=== PATIENT | female | born 1960 | race Asian ===

== ENCOUNTER 2017-06-09 15:10 | Inpatient (IN) | payer OTHER ==
[~2017-06-09] VITALS: Ht 152.4 cm; Wt 39.9 kg
[2017-06-09 04:00] VITALS: BP 177/98
--- NOTE | 2017-06-09 15:30 | NUR ---
PATIENT ARRIVED TO UNIT AND PLACED IN ROOM 110. PATIENT ARRIVED ON A GURNEY VIA AMBULANCE WITH TWO drapery cutter machine. MOTHER AT BEDSIDE.
[2017-06-09] MEDS ORDERED: NIFE60TA69 PO (16:04)
[2017-06-09] MEDS ORDERED: INSU100V7 SQ (16:04)
[2017-06-09] MEDS ORDERED: FAMO40TA7 PO (16:04)
[2017-06-09] MEDS ORDERED: OMEP40CA37 PO (16:04)
[2017-06-09] MEDS ORDERED: TRAZ-144 PO (16:04)
[2017-06-09] MEDS ORDERED: METO-357 PO (16:04)
[2017-06-09] MEDS ORDERED: [UNRECOGNIZED DRUG - CODE] PO (16:04)
[2017-06-09] MEDS ORDERED: SIMV40TA5 PO (16:04)
[2017-06-09 16:05] VITALS: BP 177/98
[2017-06-09] MEDS ORDERED: MAGNESIUM HYDROXIDE 30 ML UDC PO PRN (17:00)
[2017-06-09] MEDS ORDERED: cetrizine 10 MG TABLET PO PRN (17:00)
[2017-06-09] MEDS ORDERED: Z GUARD REMEDY 2 OZ OINT TP PRN (17:00)
[2017-06-09] MEDS ORDERED: HYDROCODONE/APAP 5/325MG 1 EACH TABLET PO PRN (17:00)
[2017-06-09] MEDS ORDERED: MAG HYDROX/AL HYDROX/SIMETH 30 ML UDC PO PRN (17:00)
[2017-06-09] MEDS ORDERED: ZOLPIDEM TARTRATE 5 MG TABLET PO PRN (17:00)
[2017-06-09] MEDS ORDERED: ONDANSETRON HCL/PF 4 MG/2 ML VIAL IVP PRN (17:00)
[2017-06-09] MEDS ORDERED: ENOXAPARIN SODIUM 40 MG/0.4 ML DISP.SYRIN SQ SCH ×2 (17:00→21:00)
[2017-06-09] MEDS ORDERED: ACETAMINOPHEN 325 MG TABLET PO PRN (17:00)
[2017-06-09] MEDS: BLOOD SUGAR DIAGNOSTIC 1 EACH STRIP VI SCH ×2 (17:22→21:20)
[2017-06-09] MEDS: METOPROLOL SUCCINATE 50 MG TAB.SR.24H PO SCH (17:27)
[2017-06-09] MEDS: NIFEdipine XL 60 MG TAB PO SCH (17:27)
[2017-06-09] MEDS ORDERED: CLONIDINE HCL 0.1 MG TABLET PO PRN (17:30)
[2017-06-09 17:52] LABS: BASOPHILS % (AUTO) 0.5 % (0.0-2.0); EOSINOPHILS % (AUTO) 0.6 % (0.0-6.0); HEMATOCRIT 30 % (33-45); HEMOGLOBIN 10.3 g/dL (11.5-14.8); LYMPHOCYTES # (AUTO) 2.3 /CMM (0.8-4.8); LYMPHOCYTES % (AUTO) 50.8 % (20.0-44.0); MEAN CORPUSCULAR HEMOGLOBIN 31 PG (26.0-33.0); MEAN CORPUSCULAR HGB CONC 34 g/dl (31.0-36.0); MEAN CORPUSCULAR VOLUME 89 fL (82-100); MONOCYTES # (AUTO) 0.4 /CMM (0.1-1.30); MONOCYTES % (AUTO) 8.4 % (2.0-12.0); NEUTROPHILS # (AUTO) 1.8 /CMM (1.8-8.9); NEUTROPHILS % (AUTO) 39.7 % (43.0-81.0); PLATELET COUNT (AUTO) 255 /CMM (150-450); RDW COEFFICIENT OF VARIATION 12.5 (11.5-15.0); RED BLOOD CELL COUNT(AUTO) 3.39 MIL/uL (4.0-5.2); WHITE BLOOD COUNT (AUTO) 4.5 K/uL (4.3-11.0)
[2017-06-09] MEDS ORDERED: SIMVASTATIN 40 MG TABLET PO SCH ×2 (18:00→22:00)
[2017-06-09 18:15] LABS: TROPONIN I 0.48 ng/mL (0.00-0.056)
[2017-06-09 18:23] LABS: CALCIUM, SERUM 8.4 mg/dL (8.5-10.1)
[2017-06-09 18:28] LABS: ALBUMIN 2.3 g/dL (3.4-5.0); BILIRUBIN,TOTAL 0.3 mg/dL (0.2-1.0); MAGNESIUM 2.2 mg/dL (1.8-2.4); PHOSPHORUS 5.1 mg/dL (2.5-4.9); TOTAL PROTEIN, SERUM 6.3 g/dL (6.4-8.2)
--- NOTE | 2017-06-09 19:02 | NUR ---
RN CLOSING NOTES: PATIENT IS IN BED, AWAKE. ALERT AND ORIENTED TO SELF ONLY. MOTHER AT BEDSIDE. LUXEMBOURGER SPEAKING. NO SIGNS AND SYMPTOMS OF DISTRESS. BREATHING IS EVEN BILATERALLY. IV ACCESS REMAINS PATENT AND FLUSHING WELL, ON HL. VS REMAINS STABLE. ALL NURSING CARE ANTICIPATED AND ATTENDED FOR. NO FURTHER COMPLAINTS. SAFETY PRECAUTIONS FOR FALL REMAINS ENGAGED, CALL LIGHT IN REACH, WILL ENDORSE TO NIGHT RN FOR ANSLEY.
--- NOTE | 2017-06-09 19:20 | NUR ---
FIELD HOCKEY COACH OPENING NOTES PT AWAKE AND RESTING IN BED. FAMILY AT BEDSIDE. NO COMPLAINTS OF SOB, PAIN, OR DISTRESS AT THIS TIME. PT HAS IMPAIRED MENTAL STATUS. PER DAY SHIFT NURSE FAMILY NOT GREAT HISTORIAN. PT TELE MONITORED. SAFETY PRECAUTIONS IN PLACE. BED IN LOWEST LOCKED POSITION, X2 SIDE RAILS UP. WILL CONTINUE TO MONITOR.
[2017-06-09] MEDS: ENOXAPARIN SODIUM 40 MG/0.4 ML DISP.SYRIN SQ SCH (19:48)
[2017-06-09 20:00] VITALS: BP 182/97
[2017-06-09] MEDS: hydrALAZINE HCL IV 20 MG VIAL IV PRN (20:36)
--- NOTE | 2017-06-09 20:36 | NUR ---
RN NOTES PT BP 182/97. WILL ADMINISTER PRN APRESOLINE 10MG. WILL CONTINUE TO MONITOR.
[2017-06-09] MEDS: FAMOTIDINE (20 MG) 20 MG TABLET PO SCH (21:19)
[2017-06-09] MEDS: TRAZODONE 50 MG TABLET PO SCH (21:19)
--- NOTE | 2017-06-09 21:19 | NUR ---
RN NOTES PT MOTHER ASKED FOR A SLEEPING PILL FOR PT. PT TAKES REGULARLY. WILL ADMINISTER PRN AMBIEN 5MG AND CONTINUE TO MONITOR.
[2017-06-09] MEDS: *INSULIN REGULAR(HUMULIN R)HUM 100 UNIT/ML VIAL SQ PRN (21:36)
[2017-06-09] MEDS ORDERED: INSULIN GLARGINE, 100 UNIT/ML CARTRIDGE SQ SCH (22:00)
[2017-06-10] VITALS: BP 110/62
[2017-06-10 04:00] VITALS: BP 127/77
--- NOTE | 2017-06-10 06:56 | NUR ---
MANAGER [employer] CLOSING NOTES PT SLEEPING IN BED, EASILY AROUSED. FAMILY AT BEDSIDE. NO COMPLAINTS OF SOB, PAIN, OR DISTRESS OVERNIGHT. PT HAS IMPAIRED MENTAL STATUS. PT TELE MONITORED SINUS RHYTHM RATE OF 83. SAFETY PRECAUTIONS IN PLACE. BED IN LOWEST LOCKED POSITION, X2 SIDE RAILS UP. ALL PT NEEDS MET. WILL ENDORSE TO DAY SHIFT NURSE FOR CONTINUITY OF CARE.
--- NOTE | 2017-06-10 07:10 | NUR ---
RN INITIAL NOTE PATIENT RECEIVED IN BED RESTING COMFORTABLY. NO S/S OF PAIN OR DISCOMFORT. NO S/S OF RESPIRATORY DISTRESS OR SOB. SATING WELL ON 2L NASAL CANULA. DA SILVA CATHETER DRAINING TO GRAVITY. SKIN IS WARM AND DRY TO TOUCH. IV SITE FLUSHED, PATENT. SAFETY PRECAUTIONS IMPLEMENTED: BED IN LOCKED, LOW POSITION WITH TWO SIDE RAILS UP. CALL LIGHT WITHIN EASY REACH. WILL MONITOR CLOSELY.
[2017-06-10 07:15] LABS: BASOPHILS % (AUTO) 0.3 % (0.0-2.0); HEMATOCRIT 32 % (33-45); HEMOGLOBIN 10.8 g/dL (11.5-14.8); LYMPHOCYTES # (AUTO) 1.1 /CMM (0.8-4.8); LYMPHOCYTES % (AUTO) 22.5 % (20.0-44.0); MEAN CORPUSCULAR HEMOGLOBIN 30 PG (26.0-33.0); MEAN CORPUSCULAR HGB CONC 34 g/dl (31.0-36.0); MEAN CORPUSCULAR VOLUME 90 fL (82-100); MONOCYTES # (AUTO) 0.1 /CMM (0.1-1.30); MONOCYTES % (AUTO) 2.3 % (2.0-12.0); NEUTROPHILS # (AUTO) 3.8 /CMM (1.8-8.9); NEUTROPHILS % (AUTO) 74.9 % (43.0-81.0); PLATELET COUNT (AUTO) 258 /CMM (150-450); RDW COEFFICIENT OF VARIATION 12.3 (11.5-15.0); RED BLOOD CELL COUNT(AUTO) 3.58 MIL/uL (4.0-5.2)
[2017-06-10 07:24] LABS: CALCIUM, SERUM 8.4 mg/dL (8.5-10.1); CREATININE 0.8 mg/dL (0.6-1.3); MAGNESIUM 1.9 mg/dL (1.8-2.4); PHOSPHORUS 4.9 mg/dL (2.5-4.9); POTASSIUM 3.3 mmol/L (3.5-5.1)
--- NOTE | 2017-06-10 07:45 | NUR ---
RN NOTE LAB CALLED CRITICAL BS-36. RECHECKED WITH FINGER STICK; RESULT WAS 31. GAVE GLUCOSE INJECTION
[2017-06-10] MEDS: DEXTROSE 50%-WATER 50 ML DISP.SYRIN IV PRN ×3 (07:47→23:33)
[2017-06-10 08:00] VITALS: BP 180/97
[2017-06-10 08:01] LABS: CHOLESTEROL 194 mg/dL (<200); HDL CHOLESTEROL 103 mg/dL (40-60); LDL 84 mg/dL (0-99); TRIGLYCERIDES 21 mg/dL (30-150)
[2017-06-10] MEDS: NIFEdipine XL 60 MG TAB PO SCH ×2 (08:09→17:13)
[2017-06-10] MEDS: CLOPIDOGREL BISULFATE 75 MG TABLET PO SCH (08:10)
[2017-06-10] MEDS: METOPROLOL SUCCINATE 50 MG TAB.SR.24H PO SCH (08:10)
[2017-06-10] MEDS: BENAZEPRIL HCL 10 MG TABLET PO SCH (08:11)
[2017-06-10] MEDS: ENOXAPARIN SODIUM 40 MG/0.4 ML DISP.SYRIN SQ SCH ×2 (08:14→21:23)
[2017-06-10] MEDS: PANTOPRAZOLE 40 MG TABLET.DR PO SCH (08:15)
[2017-06-10] MEDS: BLOOD SUGAR DIAGNOSTIC 1 EACH STRIP VI SCH ×4 (08:15→21:23)
[2017-06-10] MEDS: ASPIRIN EC 81 MG TABLET.DR PO SCH (08:15)
[2017-06-10] MEDS ORDERED: IV NS 0.9% 250 ML IV ONE (11:48)
[2017-06-10] MEDS ORDERED: IOHEXOL-300 100 ML VIAL IV ONE (11:48)
[2017-06-10 12:00] VITALS: BP 168/77
[2017-06-10] MEDS ORDERED: POTASSIUM CHLORIDE 20 MEQ TAB.PRT.SR PO SCH (14:00)
[2017-06-10 16:00] VITALS: BP 155/77
[2017-06-10] MEDS ORDERED: IV D5/ 0.9% NACL 1,000 ML IV ONE (17:30)
[2017-06-10 20:00] VITALS: BP 145/85
--- NOTE | 2017-06-10 20:00 | NUR ---
RN NOTES RECEIVED PATIENT IN BED, ALERT AND RESPONSIVE NOTED WITH MENTAL RETARDATION. NO DISTRESS NOTED. BREATHING EVEN AND UNLABORED. MOTHER AT BEDSIDE. NO COMPLAINT OF PAIN OR DISCOMFORT. VITAL SIGNS WNL. KEPT CLEAN AND DRY. WILL CONTINUE TO MONITOR.
[2017-06-10] MEDS: TRAZODONE 50 MG TABLET PO SCH (21:20)
[2017-06-10] MEDS: FAMOTIDINE (20 MG) 20 MG TABLET PO SCH (21:20)
[2017-06-10] MEDS: INSULIN GLARGINE, 100 UNIT/ML CARTRIDGE SQ SCH (21:21)
[2017-06-10] MEDS: ATORVASTATIN 40 MG TABLET PO SCH (21:21)
[2017-06-10] MEDS: INSULIN REGULAR, HUMAN 100 UNIT/ML 3 ML VIAL SQ PRN (21:28)
--- NOTE | 2017-06-10 23:55 | NUR ---
RN NOTES NOTED PATIENT TO BE COLD CLAMMY WITH CONFUSION, CHECKED BLOOD SUGAR. GLUCOMETER READING LOW. ADMINISTERED DEXTROSE INJ 50%-WATER. VITAL SIGNS TAKEN WNL. CHECKED BLOOD SUGAR LEVEL AFTER ABOUT 30 MINUTES 132. PATIENT KEPT CLEAN AND DRY.
[2017-06-11] VITALS: BP 146/65
[2017-06-11] MEDS: *INSULIN REGULAR(HUMULIN R)HUM 100 UNIT/ML VIAL SQ PRN (00:30)
[2017-06-11 06:00] VITALS: BP 126/67
[2017-06-11 07:17] LABS: CALCIUM, SERUM 8.4 mg/dL (8.5-10.1); CREATININE 0.8 mg/dL (0.6-1.3); POTASSIUM 3.2 mmol/L (3.5-5.1)
[2017-06-11] MEDS: BLOOD SUGAR DIAGNOSTIC 1 EACH STRIP VI SCH ×4 (07:24→21:15)
--- NOTE | 2017-06-11 07:29 | NUR ---
AGRICULTURE TECHNICIAN NOTES RECEIVED PT ON BED SLEEPING. CONFUSED. IV ACCESS ON RFA #20 RUNNING WELL. HEAD OF BED ELEVATED. SIDE RAILS UP. CALL LIGHT WITHIN REACH. WILL CONTINUE TO MONITOR PT CLOSELY.
[2017-06-11 08:00] VITALS: BP_SYST 143; BP_SYST 145; BP_DIAS 67; BP_DIAS 94
[2017-06-11] MEDS: ENOXAPARIN SODIUM 40 MG/0.4 ML DISP.SYRIN SQ SCH ×2 (08:05→21:22)
[2017-06-11] MEDS: PANTOPRAZOLE 40 MG TABLET.DR PO SCH (08:06)
[2017-06-11] MEDS: METOPROLOL SUCCINATE 50 MG TAB.SR.24H PO SCH (08:06)
[2017-06-11] MEDS: NIFEdipine XL 60 MG TAB PO SCH ×2 (08:06→16:35)
[2017-06-11] MEDS: BENAZEPRIL HCL 10 MG TABLET PO SCH (08:06)
[2017-06-11] MEDS: CLOPIDOGREL BISULFATE 75 MG TABLET PO SCH (08:07)
[2017-06-11] MEDS: ASPIRIN EC 81 MG TABLET.DR PO SCH (08:07)
[2017-06-11] MEDS: POTASSIUM CHLORIDE 20 MEQ TAB.PRT.SR PO SCH ×2 (11:55→13:00)
[2017-06-11 12:00] VITALS: BP_SYST 156; BP_DIAS 64; BP_DIAS 69
[2017-06-11] MEDS: METOPROLOL SUCCINATE 25 MG TAB.SR.24H PO SCH (13:22)
[2017-06-11 16:00] VITALS: BP 184/86
[2017-06-11] MEDS: hydrALAZINE HCL IV 20 MG VIAL IV PRN (16:34)
--- NOTE | 2017-06-11 16:44 | NUR ---
SLIP TENDER NOTES [employer] RE[employer]UE ACCOUNTING MANAGER NOTIFIED REGARDING PT HIGH BLOOD PRESSURE 184/74. GIVEN HYDRALAZINE 10MG. WILL MONITOR BP CLOSELY
--- NOTE | 2017-06-11 17:07 | NUR ---
CEO & BOARD DIRECTOR NOTES BP CHECKED 154/74. HR IS 90.
--- NOTE | 2017-06-11 18:57 | NUR ---
DIE OPERATOR NOTES NO ACUTE CHANGES NOTED DURING THE SHIFT. PROVIDED COMFORT AND SAFETY. DUE MEDS GIVEN. WILL ENDORSE TO THE PM NURSE FOR ANSLEY.
--- NOTE | 2017-06-11 19:30 | NUR ---
WATER RESTORATION TECHNICIAN INITIAL NOTE PATIENT RECEIVED LYING IN BED, AOX1, MOTHER AT BEDSIDE, NO PAIN NOTED. TELE SR 88, NO CARDIAC OR RESPIRATORY DISTRESS NOTED. LFA IV FLUSHING WELL. NO S/SX OF HYPO/HYPERGLYCEMIA NOTED. SAFETY MAINTAINED, BED LOCKED IN LOCKED, LOW POSITION, CALL LIGHT WITHIN REACH, WILL CONTINUE TO MONITOR FOR ANY CHANGES.
[2017-06-11 20:00] VITALS: BP_SYST 107; BP_SYST 152; BP_DIAS 57; BP_DIAS 72
[2017-06-11] MEDS: FAMOTIDINE (20 MG) 20 MG TABLET PO SCH (21:14)
[2017-06-11] MEDS: TRAZODONE 50 MG TABLET PO SCH (21:15)
[2017-06-11] MEDS: ATORVASTATIN 40 MG TABLET PO SCH (21:15)
[2017-06-11] MEDS: INSULIN GLARGINE, 100 UNIT/ML CARTRIDGE SQ SCH (21:22)
[2017-06-12] VITALS (7 sets, daily range): BP systolic 124–147; BP diastolic 65–86
--- NOTE | 2017-06-12 06:29 | NUR ---
SLITTER SCORER CLOSING NOTE NO ACUTE CHANGES DURING SHIFT, PATIENT RESTING COMFORTABLY IN BED, GLUCOSE ELEVATED IN PM, 223, NO INSULIN COVERAGE PER MD ORDERS, NO S/SX OF HYPERGLYCEMIA. SAFETY MAINTAINED AT ALL TIMES, WILL ENDORSE TO RN FOR ANSLEY.
[2017-06-12 06:35] LABS: CALCIUM, SERUM 8.9 mg/dL (8.5-10.1); POTASSIUM 3.8 mmol/L (3.5-5.1)
[2017-06-12 06:53] LABS: FERRITIN 119 ng/mL (8-388)
[2017-06-12 07:27] LABS: IRON, SERUM 102 ug/dl (50-175); TOTAL IRON BINDING CAPACITY 222 ug/dl (250-450)
[2017-06-12] MEDS: PANTOPRAZOLE 40 MG TABLET.DR PO SCH (08:06)
[2017-06-12] MEDS: CLOPIDOGREL BISULFATE 75 MG TABLET PO SCH (08:06)
[2017-06-12] MEDS: ASPIRIN EC 81 MG TABLET.DR PO SCH (08:06)
[2017-06-12] MEDS: METOPROLOL SUCCINATE 25 MG TAB.SR.24H PO SCH (08:07)
[2017-06-12] MEDS: BENAZEPRIL HCL 10 MG TABLET PO SCH (08:07)
[2017-06-12] MEDS: BLOOD SUGAR DIAGNOSTIC 1 EACH STRIP VI SCH ×4 (08:07→22:33)
[2017-06-12] MEDS: NIFEdipine XL 60 MG TAB PO SCH ×2 (08:07→16:14)
[2017-06-12] MEDS: INSULIN REGULAR, HUMAN 100 UNIT/ML 3 ML VIAL SQ PRN (17:09)
--- NOTE | 2017-06-12 18:27 | NUR ---
CITIZEN PARTICIPATION SPECIALIST NOTE CONSENT SIGNED FOR CT ANGIOGRAM BY MOTHER @ BEDSIDE. PT STABLE NO C/O PAIN. V/S WNL . WILL CONTINUE TO MONITOR.
--- NOTE | 2017-06-12 19:30 | NUR ---
RN INITIAL NOTE RECEIVED PT IN NO ACUTE DISTRESS IN BED. PT IS A/O X 1 BUT HAS FAMILY AT BEDSIDE. PT IS MONGOLIAN SPEAKING. PT IS ON TELE WITH SR ON THE MONITOR. PT IS NOT C/O ANY SOB, DIFFICULTY BREATHING OR PAIN AT THIS TIME. PT IS ABLE TO AMBULATE TO RESTROOM. PT HAS L WRIST 22G THAT IS CLEAN DRY INTACT AND PATENT. BED IN LOW LOCK POSITION WITH RIALS UP X 2. CALL LIGHT WITHIN REACH AND ALL SAFETY MEASURES ENSURED AND CARRIED OUT. WILL CONTINUE TO MONITOR PT.
[2017-06-12] MEDS: INSULIN GLARGINE, 100 UNIT/ML CARTRIDGE SQ SCH (22:00)
[2017-06-12] MEDS: ATORVASTATIN 40 MG TABLET PO SCH (22:32)
[2017-06-12] MEDS: TRAZODONE 50 MG TABLET PO SCH (22:32)
[2017-06-12] MEDS: FAMOTIDINE (20 MG) 20 MG TABLET PO SCH (22:32)
[2017-06-13] VITALS: BP 132/68
[2017-06-13 04:00] VITALS: BP 137/62
[2017-06-13] MEDS: PANTOPRAZOLE 40 MG TABLET.DR PO SCH (07:30)
--- NOTE | 2017-06-13 07:30 | NUR ---
IN BED RESTING COMFORTABLY. MOM AT BEDSIDE, INFORMED OF NPO STATUS. ON RA. NO C/O PAIN. WILL CONT TO MONITOR.
[2017-06-13] MEDS: BLOOD SUGAR DIAGNOSTIC 1 EACH STRIP VI SCH ×4 (07:45→21:14)
[2017-06-13 08:00] VITALS: BP 150/77
[2017-06-13 08:06] LABS: CALCIUM, SERUM 8.9 mg/dL (8.5-10.1); CREATININE 0.9 mg/dL (0.6-1.3); POTASSIUM 3.9 mmol/L (3.5-5.1)
[2017-06-13] MEDS: BENAZEPRIL HCL 10 MG TABLET PO SCH ×2 (10:28→17:05)
[2017-06-13] MEDS: ASPIRIN EC 81 MG TABLET.DR PO SCH (10:29)
[2017-06-13] MEDS: CLOPIDOGREL BISULFATE 75 MG TABLET PO SCH (10:29)
[2017-06-13] MEDS: METOPROLOL SUCCINATE 25 MG TAB.SR.24H PO SCH (10:29)
[2017-06-13] MEDS: NIFEdipine XL 60 MG TAB PO SCH ×2 (10:30→17:04)
[2017-06-13] MEDS: *INSULIN REGULAR(HUMULIN R)HUM 100 UNIT/ML VIAL SQ PRN ×2 (11:44→21:22)
[2017-06-13 12:00] VITALS: BP 167/70
--- NOTE | 2017-06-13 12:00 | NUR ---
RESTING COMFORTABLY IN BED. NO DISTRESS NOTED. WILL CONTINUE TO MONITOR.
--- NOTE | 2017-06-13 12:30 | NUR ---
BLOOD SUGAR 196. MOM REFUSED TO HAVE INSULIN GIVEN BECAUSE PT HAS NOT HAD FOOD DUE TO PLANNED PROCEDURE. BP ELEVATED BUT BP MEDS PREVIOUSLY GIVEN. PT'S MOM AGITATED BECAUSE PROCEDURE IS LATER THAN EXPECTED. EDUCATED MOM. WILL CONTINUE TO MONITOR.
--- NOTE | 2017-06-13 14:17 | NUR ---
PROCEDURE CANCELLED ORDERED, FED PT. WILL CONTINUE TO MONITOR.
[2017-06-13 16:00] VITALS: BP 147/69
[2017-06-13] MEDS: INSULIN REGULAR, HUMAN 100 UNIT/ML 3 ML VIAL SQ PRN (17:58)
--- NOTE | 2017-06-13 18:23 | NUR ---
PT'S BLOOD SUGARS MONITORED AND WAS 398, REPEATED 393. MOM HESITANT TO HAVE THE 15 UNIT INSULIN BUT EDUCATED MOM REGARDING BLOOD SUGAR LEVELS. MOM IS SCARED THAT PT'S BLOOD SUGAR WILL GO DOWN AND THAT PT WILL HAVE A "HEART ATTACK AGAIN." INFORMED MOM THAT PT IS BEING MONITORED IN HOSPITAL AND IF SUGAR LEVEL HAPPENS TO BE LOW, MEDICATION TO INCREASE BLOOD SUGAR WILL BE GIVEN ORDERED. MOM AGREED FOR THE 15 UNIT DOSE TO BE GIVEN. WILL CONTINUE TO MONITOR.
[2017-06-13 20:00] VITALS: BP_SYST 141; BP_SYST 147; BP_DIAS 60
[2017-06-13] MEDS: TRAZODONE 50 MG TABLET PO SCH (21:13)
[2017-06-13] MEDS: FAMOTIDINE (20 MG) 20 MG TABLET PO SCH (21:13)
[2017-06-13] MEDS: ATORVASTATIN 40 MG TABLET PO SCH (21:13)
--- NOTE | 2017-06-13 21:20 | NUR ---
CHIEF PSYCHOLOGIST NOTES PATIENT BLOOD GLUCOSE OF 37. ASYMPTOMATIC. GIVEN 8OZ ORANGE JUICE AND WILL RECHECK IN 15 MINUTES. PATIENT IS ALERT AND ORIENTED X3 AND COMPLIANT.
[2017-06-13] MEDS: INSULIN GLARGINE, 100 UNIT/ML CARTRIDGE SQ SCH (21:21)
--- NOTE | 2017-06-13 21:22 | NUR ---
DRAMA DIRECTOR NOTES. HELD INSULINS PER BLOOD GLUCOSE LEVEL 37.
--- NOTE | 2017-06-13 21:30 | NUR ---
PLACEMENT DIRECTOR NOTES RECHECKED BLOOD SUGAR AT 83. PATIENT ALERT AND ORIENTED X 3 ASYMPTOMATIC. WILL CONTINUE TO MONITOR PATIENT. WILL NOTIFY .
[2017-06-14] VITALS: BP_SYST 127; BP_DIAS 58; BP_DIAS 78
[2017-06-14 04:00] VITALS: BP 151/69
[2017-06-14 07:19] LABS: BASOPHILS % (AUTO) 0.5 % (0.0-2.0); EOSINOPHILS # (AUTO) 0.1 /CMM (0.0-0.7); HEMATOCRIT 32 % (33-45); HEMOGLOBIN 10.9 g/dL (11.5-14.8); LYMPHOCYTES # (AUTO) 1.8 /CMM (0.8-4.8); LYMPHOCYTES % (AUTO) 42.7 % (20.0-44.0); MEAN CORPUSCULAR HEMOGLOBIN 31 PG (26.0-33.0); MEAN CORPUSCULAR HGB CONC 34 g/dl (31.0-36.0); MEAN CORPUSCULAR VOLUME 89 fL (82-100); MONOCYTES # (AUTO) 0.4 /CMM (0.1-1.30); MONOCYTES % (AUTO) 8.6 % (2.0-12.0); NEUTROPHILS # (AUTO) 1.9 /CMM (1.8-8.9); NEUTROPHILS % (AUTO) 45.2 % (43.0-81.0); PLATELET COUNT (AUTO) 270 /CMM (150-450); RDW COEFFICIENT OF VARIATION 11.8 (11.5-15.0); RED BLOOD CELL COUNT(AUTO) 3.58 MIL/uL (4.0-5.2); WHITE BLOOD COUNT (AUTO) 4.3 K/uL (4.3-11.0)
--- NOTE | 2017-06-14 07:19 | NUR ---
INTERNIST NOTES RECEIVED PT ON BED SLEEPING. ALERT ORIENTED X2. ON ROOM AIR SATURATING WELL. PT ON NPO. HEAD OF BED ELEVATED. SIDE RAILS UP. CALL LIGHT WITHIN REACH. BED ALARM ON. WILL CONTINUE TO MONITOR PT CLOSELY.
[2017-06-14 07:32] LABS: CALCIUM, SERUM 8.4 mg/dL (8.5-10.1); CREATININE 0.9 mg/dL (0.6-1.3); POTASSIUM 4.3 mmol/L (3.5-5.1)
[2017-06-14 08:00] VITALS: BP_SYST 170; BP_DIAS 72; BP_DIAS 82
--- NOTE | 2017-06-14 08:22 | NUR ---
MANAGER OF INTERNAL NOTES PT MOTHER REFUSED INSULIN. EXPLAINED THE RISK AND BENEFITS.
[2017-06-14] MEDS: PANTOPRAZOLE 40 MG TABLET.DR PO SCH (08:33)
[2017-06-14] MEDS: BLOOD SUGAR DIAGNOSTIC 1 EACH STRIP VI SCH ×2 (08:33→11:26)
[2017-06-14] MEDS: CLOPIDOGREL BISULFATE 75 MG TABLET PO SCH (08:33)
[2017-06-14] MEDS: ASPIRIN EC 81 MG TABLET.DR PO SCH (08:34)
[2017-06-14] MEDS: METOPROLOL SUCCINATE 25 MG TAB.SR.24H PO SCH (08:34)
[2017-06-14] MEDS: BENAZEPRIL HCL 10 MG TABLET PO SCH (08:35)
[2017-06-14] MEDS: NIFEdipine XL 60 MG TAB PO SCH (08:35)
[2017-06-14 09:37] LABS: IMMUNOGLOBULIN A, SERUM 212 mg/dL (87-352); IMMUNOGLOBULIN G, SERUM 1164 mg/dL (700-1600); IMMUNOGLOBULIN M, SERUM 60 mg/dL (26-217)
--- NOTE | 2017-06-14 10:11 | NUR ---
TROLLEY WIRE INSTALLER NOTES JHON CABRERA NOTIFIED REGARDING PT BLOOD SUGAR LEVEL OF 376. NO NEW ORDERS.
[2017-06-14 11:23] LABS: *SPE A/G RATIO 0.9 (0.7-1.7); *SPE ALBUMIN 2.9 g/dL (2.9-4.4); *SPE ALPHA-1-GLOBULIN 0.3 g/dL (0.0-0.4); *SPE ALPHA-2-GLOBULIN 0.7 g/dL (0.4-1.0); *SPE BETA GLOBULIN 0.8 g/dL (0.7-1.3); *SPE GLOBULIN, TOTAL 3.1 g/dL (2.2-3.9); *SPE M-SPIKE Not Observed g/dL (Not Observed); *SPEGAMMA GLOBULIN 1.2 g/dL (0.4-1.8)
[2017-06-14] MEDS ORDERED: ASPI-1152 PO (11:46)
[2017-06-14] MEDS ORDERED: BENA10TA2 PO (11:46)
[2017-06-14] MEDS ORDERED: NIFE60TA69 PO (11:46)
[2017-06-14] MEDS ORDERED: METO25TA3 PO (11:46)
[2017-06-14] MEDS ORDERED: CT SWABBABLE VALVE TRANS SET 1 EA INFUS.SET MC ONE (11:57)
[2017-06-14] MEDS ORDERED: IV NS 0.9% 250 ML IV ONE (11:57)
[2017-06-14] MEDS ORDERED: IOHEXOL-350 100 ML VIAL IV ONE (11:57)
[2017-06-14 12:00] VITALS: BP 156/73
--- NOTE | 2017-06-14 13:00 | NUR ---
MS NAPIER NOTES PATIENT MOTHER EDUCATED REGARDING PT ABOUT NO METFORMIN FOR 2 DAYS. Addendum: 06/14/17 at 1743 by ALYSSA CONNOLLY RN WRONG USER. USER IS KEVIN ALEJO RN
--- NOTE | 2017-06-14 13:43 | NUR ---
MS RN NOTES BLOOD SUGAR 307. NOTIFIED JHON KAPLAN INSULIN PER PROTOCOL.
[2017-06-14] MEDS: INSULIN REGULAR, HUMAN 100 UNIT/ML 3 ML VIAL SQ PRN (13:52)
--- NOTE | 2017-06-14 14:49 | NUR ---
MS RN NOTES MOTHER REFUSED INSULIN. EXPLAINED THE RISK AND BENEFITS.
--- NOTE | 2017-06-14 15:30 | NUR ---
MS RN NOTES PT DISCHARGED STABLE. EXIT CARE DONE. ACCOMPANIED BY RN OUTSIDE THE HOSPITAL AND TRANSFERRED VIA PRIVATE CAR.
--- NOTE | 2017-06-14 16:25 | NUR ---
Social work consult was requested by Sarina Bautista NP in regards to pt. having a mental illness and the mother taking care of her alone. Patient is a 56 year old female who was brought into the hospital for abdominal pain. MELVA met with pt. and pt.s mother bedside. Patient is oriented to person and place only. Pt.s mother reported that she needed additional care for her daughter. MELVA called [facility] ([phone]) for pt. due to mother not being fluent in Nigerian. MELVA spoke with Andrade who reported that the pt. already has an ongoing case. MELVA told Andrade that the pt.s mother reports that she does not have a case. Andrade provided a number for a social security specialist to follow up with the case. MELVA called ([phone]) and spoke with Lyudmila FRYE and informed her that the pt. has not been receiving care and to follow up with the mother Lyndsey or brother Gary . MELVA informed Lyudmila from [facility] that the pt. needed to be reevaluated due to being in the hospital. Lyudmila stated that she would get in contact with the family in three business days. MELVA and Case management provided pt.s mother with options for SNF or Board & Care and pt.s mother refused. MELVA provided emotional support and provided mother with [employer] helpline ([phone]). Plan: Pt will be discharged and MELVA Coreas([phone]) will follow up with the pt. in regards to [facility].
--- NOTE | 2017-06-14 17:41 | NUR ---
MS NAPIER NOTES EDUCATED THE MOTHER REGARDING PT NO METFORMIN FOR 2 DAYS, Addendum: 06/14/17 at 1742 by ALYSSA CONNOLLY RN WRONG USER
[2017-06-15 14:20] LABS: *MET NORMETANEPHRINE, PL 103 pg/mL (0-145)
[2017-06-15 15:12] LABS: *METANEPHRINES, PL 26 pg/mL (0-62)
== END 2017-06-14 15:23 | disposition home or self-care (01) | DRG 190 ==
LOC: TELE1 15:10 → MEDSG1 06-14 13:17
PROVIDERS: ADMIT Internal Medicine; ATTEND Internal Medicine
DX: I21.4 Non-ST elevation (NSTEMI) myocardial infarction (principal); E43 Unspecified severe protein-calorie malnutrition; E11.649 Type 2 diabetes mellitus with hypoglycemia without coma; E11.65 Type 2 diabetes mellitus with hyperglycemia; M41.9 Scoliosis, unspecified; N28.1 Cyst of kidney, acquired; F79 Unspecified intellectual disabilities; Z68.1 Body mass index [BMI] 19.9 or less, adult; I10 Essential (primary) hypertension; D64.9 Anemia, unspecified; D35.01 Benign neoplasm of right adrenal gland; E87.6 Hypokalemia; E78.5 Hyperlipidemia, unspecified; Z79.899 Other long term (current) drug therapy; Z79.82 Long term (current) use of aspirin
CPT/HCPCS: 36415; 74178; 75574; 80048-TC; 80053-TC; 80061-TC; 82533; 82728-TC; 82746; 82784; 82962-TC; 83540-TC; 83735-TC; 83835; 84100-TC; 84155; 84165; 84484-TC; 85025-TC; 86334; 87081-TC; 93307-TC; J0360; J1650; J1815; J7042; J7050; Q9967; Z7610